=== PATIENT | male | born 1985 | race Caucasian/White ===

== ENCOUNTER 2016-07-11 11:45 | Emergency (ER) | payer MEDICARE, OTHER ==
[2016-07-11] MEDS ORDERED: NS 0.9% 1000 ML* 1,000 ML IV ONE (12:42)
[2016-07-11] MEDS ORDERED: Ondansetron INJ* 2 MG/ML VIAL IV ONE (12:47)
[2016-07-11] MEDS ORDERED: Morphine INJ* 4 MG/ML 1 ML SYRINGE IV ONE (12:47)
[2016-07-11 13:13] LABS: Hematocrit 48 % (42-52); Hemoglobin 16.2 g/dl (14.0-18.0); Mean Corpuscular HGB Conc 34 g/dl (31-36); Mean Corpuscular Hemoglobin 31 pg (27-31); Mean Corpuscular Volume 90 fL (80-94); Mean Platelet Volume 8 um3 (7.4-10.4); Red Blood Count 5.29 10^6/ul (4.0-5.4); Red Cell Distribution Width 13 % (10.5-15); White Blood Count 5.2 10^3/ul (3.5-10.8)
[2016-07-11 13:29] LABS: Albumin 4.1 g/dL (3.2-5.2); BUN/Creatinine Ratio 18.8 (8-20); C Reactive Protein 7.29 mg/L (< 5.00); EGFR African American 113.1 (>60); Globulin 2.9 g/dL (2-4); Potassium 4.1 mmol/L (3.5-5.0); Total Bilirubin 0.5 mg/dL (0.2-1.0)
[2016-07-11] MEDS ORDERED: Iohexol 300* (CONTRAST) 10 ML SDV IV ONE (13:48)
[2016-07-11] MEDS ORDERED: HYDROmorphone* 1 MG/ML 1 ML SYR IV ONE ×3 (14:02→17:13)
--- NOTE | 2016-07-11 14:42 | RAD ---
INDICATION: Periumbilical pain and swelling. COMPARISON: There are no prior studies available for comparison. TECHNIQUE: A CT scan of the abdomen and pelvis was performed with intravenous and oral contrast following intravenous injection of 150 ml of Omnipaque 300 nonionic contrast. Contiguous axial sections were obtained from the lung bases through the symphysis pubis. Images were reconstructed in the coronal and sagittal planes. FINDINGS: There is mild dependent bilateral lower lobe subsegmental atelectasis. No pleural effusion is present. The liver and spleen are within normal limits in size without significant focal abnormality. No calcified gallstones are seen. The pancreas appears to be within normal limits in size. The kidneys and adrenal glands are normal in size. No hydronephrosis is seen. No significant focal renal abnormality is seen. The aorta is normal in caliber and demonstrates homogeneous contrast opacification. No significant enlarged retroperitoneal lymph nodes are seen. The stomach is distended with contrast and food debris. The small bowel and colon appear nondistended. The appendix is within normal limits. There are scattered diverticuli throughout the colon which are [id number]-[id number] in degree. There is no evidence for diverticulitis or colitis. There is a small periumbilical hernia containing fat measuring approximately 2.2 x 2.6 cm in size. There is mild interstitial stranding within the hernia suggesting the possibility of localized inflammation. No free intraperitoneal air or fluid is seen. No significant focal osseous abnormality is seen. IMPRESSION: THERE IS A SMALL PERIUMBILICAL HERNIA CONTAINING FAT WITH MILD INTERSTITIAL STRANDING SUGGESTING LOCALIZED INFLAMMATION.
[2016-07-11 15:47] LABS: Urine Bilirubin Negative (Negative); Urine Glucose Negative (Negative); Urine Nitrite Negative (Negative)
[2016-07-11] MEDS ORDERED: HYDROcodone/ACETAMIN 5-325 MG* 1 TAB PO ONE (16:54)
[2016-07-11] MEDS ORDERED: Albuterol/Ipratropium NEB.SOL* Albuterol 2.5 MG/Ipratropium 0.5 MG 3 ML INH ONE (16:54)
[2016-07-11] MEDS ORDERED: Ondansetron ODT TAB* 4 MG PO ONE (16:55)
--- NOTE | 2016-07-11 17:09 | ED ---
Sandip Marie Janilya, scribed for Bryn Fontenot MD on 07/11/16 at 1243 . Abdominal Pain/Male - HPI Summary HPI Summary: A 30 y/o male came in to [facility] presenting w/ a gradual onset of constant abd pain for the past couple days. Severity rated 6/10. Pt states there is an umbilical hernia. He states he has had for couple years. However, it worsened when he did some heavy lifting for the past 2 days. Pt reports severe pain. - History of Current Complaint Chief Complaint: EDAbdPain Stated Complaint: ABD PAIN Time Seen by Provider: 07/11/16 12:31 Hx Obtained From: Patient Onset/Duration: Gradual Onset, Lasting Days, Still Present Timing: Constant Severity Initially: Moderate Severity Currently: Moderate Pain Intensity: 6 Pain Scale Used: 0-10 Numeric Radiates: No Aggravating Factor(s): Nothing Alleviating Factor(s): Nothing - Allergies/Home Medications Allergies/Adverse Reactions: Allergies Allergy/AdvReac Type Severity Reaction Status Date / Time Penicillins [PCN] Allergy Unknown Verified 04/24/15 12:02 Reaction Details Prazosin Allergy Rash Verified 04/24/15 12:02 PMH/Surg Hx/FS Hx/Imm Hx Previously Healthy: Yes - Surgical History Surgery Procedure, Year, and Place: Left shoulder repair Infectious Disease History: No Infectious Disease History: Denies: Hx Clostridium Difficile, Hx Hepatitis, Hx Human Immunodeficiency Virus (HIV), Hx of Known/Suspected MRSA, Hx Shingles, Hx Tuberculosis, Hx Known/ Suspected VRE, Hx Known/Suspected VRSA, History Other Infectious Disease, Traveled Outside the [place] in Last 30 Days - Family History Known Family History: Positive: Hypertension - father - Social History Alcohol Use: Occasionally Substance Use Type: Reports: None Smoking Status (MU): Never Smoked Tobacco Review of Systems Negative: Fever Positive: Other - umbilical hernia All Other Systems Reviewed And Are Negative: Yes Physical Exam Triage Information Reviewed: Yes Vital Signs On Initial Exam: Initial Vitals Temp Pulse Resp BP Pulse Ox 97.5 F 81 16 129/75 100 07/11/16 11:47 07/11/16 11:47 07/11/16 11:47 07/11/16 11:47 07/11/16 11:47 Vital Signs Reviewed: Yes Appearance: Positive: Well-Appearing, Pain Distress Skin: Positive: Warm, Skin Color Reflects Adequate Perfusion, Dry Head/Face: Positive: Normal Head/Face Inspection Eyes: Positive: EOMI, MICHA ENT: Positive: Normal ENT inspection Neck: Positive: Supple, Nontender Respiratory/Lung Sounds: Positive: Clear to Auscultation, Breath Sounds Present Cardiovascular: Positive: RRR Abdomen Description: Positive: Nontender, Soft, Other: - Umbilical hernia that appears to reduce on exam but with moderate amount of pain Musculoskeletal: Positive: Normal, Strength/ROM Intact Neurological: Positive: Normal, Sensory/Motor Intact, Alert, Oriented to Person Place, Time Psychiatric: Positive: Affect/Mood Appropriate Diagnostics - Vital Signs Vital Signs Temp Pulse Resp BP Pulse Ox 07/11/16 11:47 97.5 F 81 16 129/75 100 - Laboratory Lab Results: Lab Results 07/11/16 07/11/16 07/11/16 Range/Units 13:00 13:00 13:00 WBC 5.2 (3.5-10.8) 10^3/ul RBC 5.29 (4.0-5.4) 10^6/ul Hgb 16.2 (14.0-18.0) g/dl Hct 48 (42-52) % MCV 90 (80-94) fL MCH 31 (27-31) pg MCHC 34 (31-36) g/dl RDW 13 (10.5-15) % Plt Count 180 (150-450) 10^3/ul MPV 8 (7.4-10.4) um3 Neut % (Auto) 48.4 (38-83) % Lymph % (Auto) 40.3 (25-47) % Grant % (Auto) 8.5 (1-9) % Eos % (Auto) 2.0 (0-6) % Baso % (Auto) 0.8 (0-2) % Absolute Neuts (auto) 2.5 (1.5-7.7) 10^3/ul Absolute Lymphs (auto) 2.1 (1.0-4.8) 10^3/ul Absolute Monos (auto) 0.4 (0-0.8) 10^3/ul Absolute Eos (auto) 0.1 (0-0.6) 10^3/ul Absolute Basos (auto) 0 (0-0.2) 10^3/ul Absolute Nucleated RBC 0 10^3/ul Nucleated RBC % 0.1 INR (Anticoag Therapy) 0.92 (0.89-1.11) APTT 30.8 (26.0-36.3) seconds Sodium 137 (133-145) mmol/L Potassium 4.1 (3.5-5.0) mmol/L Chloride 105 (101-111) mmol/L Carbon Dioxide 25 (22-32) mmol/L Anion Gap 7 (2-11) mmol/L BUN 19 (6-24) mg/dL Creatinine 1.01 (0.67-1.17) mg/dL Est GFR ( Amer) 113.1 (>60) Est GFR (Non-Af Amer) 88.0 (>60) BUN/Creatinine Ratio 18.8 (8-20) Glucose 92 (70-100) mg/dL Lactic Acid (0.5-2.0) mmol/L Calcium 9.0 (8.6-10.3) mg/dL Total Bilirubin 0.50 (0.2-1.0) mg/dL AST 27 (13-39) U/L ALT 27 (7-52) U/L Alkaline Phosphatase 52 (34-104) U/L C-Reactive Protein 7.29 H (< 5.00) mg/L Total Protein 7.0 (6.4-8.9) g/dL Albumin 4.1 (3.2-5.2) g/dL Globulin 2.9 (2-4) g/dL Albumin/Globulin Ratio 1.4 (1-3) Lipase 109 H (11.0-82.0) U/L Urine Color Urine Appearance Urine pH (5-9) Ur Specific [place] (1.010-1.030) Urine Protein (Negative) Urine Ketones (Negative) Urine Blood (Negative) Urine Nitrate (Negative) Urine Bilirubin (Negative) Urine Urobilinogen (Negative) Ur Leukocyte Esterase (Negative) Urine Glucose (Negative) Urine Ascorbic Acid (Negative) 07/11/16 07/11/16 Range/Units 13:00 15:38 WBC (3.5-10.8) 10^3/ul RBC (4.0-5.4) 10^6/ul Hgb (14.0-18.0) g/dl Hct (42-52) % MCV (80-94) fL MCH (27-31) pg MCHC (31-36) g/dl RDW (10.5-15) % Plt Count (150-450) 10^3/ul MPV (7.4-10.4) um3 Neut % (Auto) (38-83) % Lymph % (Auto) (25-47) % Grant % (Auto) (1-9) % Eos % (Auto) (0-6) % Baso % (Auto) (0-2) % Absolute Neuts (auto) (1.5-7.7) 10^3/ul Absolute Lymphs (auto) (1.0-4.8) 10^3/ul Absolute Monos (auto) (0-0.8) 10^3/ul Absolute Eos (auto) (0-0.6) 10^3/ul Absolute Basos (auto) (0-0.2) 10^3/ul Absolute Nucleated RBC 10^3/ul Nucleated RBC % INR (Anticoag Therapy) (0.89-1.11) APTT (26.0-36.3) seconds Sodium (133-145) mmol/L Potassium (3.5-5.0) mmol/L Chloride (101-111) mmol/L Carbon Dioxide (22-32) mmol/L Anion Gap (2-11) mmol/L BUN (6-24) mg/dL Creatinine (0.67-1.17) mg/dL Est GFR ( Amer) (>60) Est GFR (Non-Af Amer) (>60) BUN/Creatinine Ratio (8-20) Glucose (70-100) mg/dL Lactic Acid 1.5 (0.5-2.0) mmol/L Calcium (8.6-10.3) mg/dL Total Bilirubin (0.2-1.0) mg/dL AST (13-39) U/L ALT (7-52) U/L Alkaline Phosphatase (34-104) U/L C-Reactive Protein (< 5.00) mg/L Total Protein (6.4-8.9) g/dL Albumin (3.2-5.2) g/dL Globulin (2-4) g/dL Albumin/Globulin Ratio (1-3) Lipase (11.0-82.0) U/L Urine Color Yellow Urine Appearance Clear Urine pH 6.0 (5-9) Ur Specific [place] > 1.060 H (1.010-1.030) Urine Protein Negative (Negative) Urine Ketones Negative (Negative) Urine Blood Negative (Negative) Urine Nitrate Negative (Negative) Urine Bilirubin Negative (Negative) Urine Urobilinogen Negative (Negative) Ur Leukocyte Esterase Negative (Negative) Urine Glucose Negative (Negative) Urine Ascorbic Acid * H (Negative) Result Diagrams: 07/11/16 13:00 07/11/16 13:00 Lab Statement: Any lab studies that have been ordered have been reviewed, and results considered in the medical decision making process. - CT abd/pel CT Interpretation: Positive (See Comments) - IMPRESSION: THERE IS A SMALL PERIUMBILICAL HERNIA CONTAINING FAT WITH MILD INTERSTITIAL STRANDING SUGGESTING LOCALIZED INFLAMMATION. CT Interpretation Completed By: Radiologist Abdominal Pain Fem Course/Dx - Course Course Of Treatment: A 30 y/o male came in to [facility] presenting w/ a gradual onset of constant abd pain for the past couple days. Severity rated 6/10. Pt states there is an umbilical hernia. He states he has had for couple years. However, it worsened when he did some heavy lifting for the past 2 days. Pt reports severe pain. CT abd/pel showed A SMALL PERIUMBILICAL HERNIA CONTAINING FAT WITH MILD INTERSTITIAL STRANDING SUGGESTING LOCALIZED INFLAMMATION. Assessment/Plan: NO CRITICAL CARE TIME. DR TIRADO SAW PATIENT IN ED. PAIN IMPROVED IN ED. HERNIA REDUCED. DICHARGE HOME STABLE. - Diagnoses Provider Diagnoses: Abdominal pain, Umbilical hernia - Provider Notifications Discussed Care Of Patient With: Dr. Tirado (surgery) at 1534: discussed pt care Discharge - Discharge Plan Condition: Stable Disposition: HOME Patient Education Materials: Umbilical Hernia (ED), Acute Abdominal Pain (ED) Referrals: Yuri Lake MD [Primary Care Provider] - Randall Tirado MD [Medical Doctor] - [facility] [Provider Group] Additional Instructions: FOLLOW UP WITH YOUR DOCTOR. FOLLOW UP WITH SURGERY, DR TIRADO, FOR YOUR UMBILICAL HERNIA. RETURN TO THE EMERGENCY DEPARTMENT FOR ANY WORSENING OF YOUR CONDITION; PAIN, FEVER, VOMITING, YOU FEEL ILL OR QUESTIONS OR CONCERNS. The documentation as recorded by the Sandip piña Janilya accurately reflects the service I personally performed and the decisions made by , Bryn Fontenot MD.
[2016-07-11 17:34] VITALS: BP 140/80
[2016-07-11 17:36] LABS: TSH (Thyroid Stimulating Horm) 0.74 mcIU/mL (0.34-5.60)
[2016-07-11 17:43] LABS: Free T4 0.78 ng/dL (0.61-1.12)
[2016-07-11 19:18] LABS: Total T3 0.9 ng/mL (0.87-1.78)
--- NOTE | 2016-07-11 21:01 | CONS ---
SURGICAL CONSULTATION REPORT: DATE OF CONSULT: 07/11/16 LOCATION: Emergency room. REASON FOR CONSULT: Umbilical hernia. HISTORY OF PRESENT ILLNESS: This is a 30-year-old male with history of PTSD, restless legs syndrome, and umbilical hernia, who presented to the emergency room with a 2-day history of increased swelling and pain in the umbilical hernia site. The patient reports no vomiting, some nausea, no problems with constipation or obstipation. He was seen and evaluated by Dr. Fontenot in the emergency room and found to have an incarcerated umbilical hernia, which was able to be reduced. The patient also had a CT scan showing fat-containing hernia and some fat stranding. Due to his presentation, surgical consultation was requested. PAST MEDICAL HISTORY: Significant for PTSD and restless legs syndrome. He has had injury to his back sustained during service. PAST SURGICAL HISTORY: He has had back surgery, 2011; left shoulder surgery, 2013; right wrist surgery, 2013. MEDICATIONS: 1. Ropinirole 1 mg p.o. q.h.s. 2. Seroquel 400 mg p.o. q.h.s. 3. Fluticasone nasal spray daily. 4. Albuterol inhaler p.r.n. ALLERGIES: PENICILLIN and PRAZOSIN. FAMILY HISTORY: A brother has thyroid disease. SOCIAL HISTORY: Ex-smoker, who smoked on and off for 3 years. He reports 3 to 4 alcoholic beverages a week. He denies other drug use. REVIEW OF SYSTEMS: Denies strokes or seizures. Denies known history of thyroid disease. He has restless legs and PTSD as reported above. He denies shortness of breath, cough, dyspnea on exertion. He denies chest pain or palpitations. He denies easy bruising or bleeding. He denies gastroesophageal reflux disease, hiatal hernia, inflammatory bowel disease, diarrhea, or constipation. Musculoskeletal System: Positive noted with history of back injury and orthopedic surgeries. No history of diabetes, polydipsia, or polyphagia. No history of blood clots. PHYSICAL EXAM: He is 5 feet 8 inches, 190 pounds, BMI 28.9. Temperature 97.9, blood pressure 121/68, pulse 67, respirations 18, O2 sat 99% on room air. Head : Normocephalic and atraumatic. Sclerae anicteric. Mucous membranes moist. He appears to have proptosis. His neck is symmetrical with trachea midline. Thyroid feels symmetrically enlarged. The lungs are clear to auscultation bilaterally without wheezes, rales, or rhonchi. Heart has regular S1 and S2. No murmurs, rubs, or gallops appreciated. Abdomen: Has no scars. There is a small umbilical hernia which is fat containing, which is reducible, but tender. The abdomen has normal bowel sounds present. Otherwise, soft and nontender. Extremities are warm without cyanosis, clubbing, or edema. DIAGNOSTIC STUDIES/LAB DATA: WBC is 5.2, hemoglobin 16.2, platelet count 180. Chemistries: Normal electrolytes, transaminases. CRP is 7.29. Lipase elevated at 109. Urinalysis was notable for elevated ascorbic acid. Radiographic data: CT abdomen and pelvis with oral and IV contrast: Small paraumbilical hernia containing fat with interstitial stranding. IMPRESSION: A 30-year-old male with reducible umbilical hernia containing fat. This does not require any urgent surgical evaluation. I am concerned for the possibility of thyroid disease. PLAN/RECOMMENDATIONS: The patient and his significant other who is present were explained the findings. Recommended that he complete evaluation with his primary care provider and he can be seen as an outpatient for umbilical hernia repair. I did briefly discuss the open procedure with the patient, explained the possibility of mesh repair, and explained that at present, there is no need for urgent repair. The patient had an opportunity to ask questions, all questions were answered. He will follow up in the [facility] office pending his medical evaluation. CC: Antonio Green NP, [facility]* [id number]/[facility] #: [id number]
== END 2016-07-11 17:32 | disposition home or self-care (01) ==
LOC: ED 11:45
DX: K42.9 Umbilical hernia without obstruction or gangrene (principal); R10.9 Unspecified abdominal pain
CPT/HCPCS: 36415; 74177; 80053; 81003; 83605; 83690; 84439; 84443; 84479; 85025; 85610; 85730; 86140; 96374; 96375; 99283; A9270-GY; J1170; J2270; J2405; Q9967

== ENCOUNTER → 2016-08-11 18:46 | Emergency (ER) | payer MEDICARE, OTHER | END | disposition left against medical advice (07) | LOC: ED 18:46 | DX: M25.512 Pain in left shoulder (principal); Z53.21 Procedure and treatment not carried out due to patient leaving prior to being seen by health care provider ==

== ENCOUNTER 2016-08-11 19:17 | Emergency (ER) | payer MEDICARE, OTHER ==
--- NOTE | 2016-08-11 19:58 | RAD ---
Indication: LEFT shoulder pain following lifting at the gym. Humeral head and AC joint region pain. Comparison: No relevant prior exams available on the [facility] PACS for comparison. Technique: Internal rotation AP, external rotation Grashey, scapular Y views LEFT shoulder Report: Normal acromioclavicular and glenohumeral joint alignment. Negative for fracture Negative for significant arthropathic change. Surgical anchors at the anterior glenoid suggests previous labral repair. Unremarkable soft tissue contours. IMPRESSION: 1. Negative for fracture or malalignment. 2. Stigmata of previous rotator cuff repair.
--- NOTE | 2016-08-11 21:17 | UC ---
Shoulder Pain HPI - HPI Summary HPI Summary: The patient comes in today for: 1. Left shoulder pain: Onset: Last night. Palliative/provocative: Anterior abduction and lateral abduction makes it worse. Quality: Sharp and hot Region: Superior and anterior left shoulder. Severity: 8/10 Associated symptoms: Event: He was in a seated chest press 50 pounds total. He suddenly felt something. He went home. He iced the shoulder. Last night he took ketorolac 10 mg and 750 mg of Robaxin. No help. He has tried Aleve. Weakness or numbness: He has reduced muscle use due to pain. * - History of Current Complaint Chief Complaint: UCUpperExtremity Stated Complaint: SHOULDER/COLLAR BONE INJURY Time Seen by Provider: 08/11/16 20:49 Hx Obtained From: Patient - Allergies/Home Medications Allergies/Adverse Reactions: Allergies Allergy/AdvReac Type Severity Reaction Status Date / Time Penicillins [PCN] Allergy Unknown Verified 04/24/15 12:02 Reaction Details Prazosin Allergy Rash Verified 04/24/15 12:02 PMH/Surg Hx/FS Hx/Imm Hx Previously Healthy: No - Restless leg syndrome, insomnia, thyroid disease-- inflammation? Respiratory History: Asthma - As a child. - Surgical History Surgical History: Yes Surgery Procedure, Year, and Place: Left shoulder repair,spinal injury l5 s1 - Family History Known Family History: Positive: Hypertension - father Negative: Diabetes - Social History Occupation: Unemployed Alcohol Use: Occasionally Substance Use Type: None Smoking Status (MU): Never Smoked Tobacco Review of Systems Constitutional: Negative Skin: Negative Eyes: Negative ENT: Negative Respiratory: Negative Cardiovascular: Negative Gastrointestinal: Negative Genitourinary: Negative Musculoskeletal: Arthralgia All Other Systems Reviewed And Are Negative: Yes Physical Exam Triage Information Reviewed: Yes Appearance: Well-Appearing, No Pain Distress - when sitting still., Well- Nourished Vital Signs: Initial Vital Signs Temp 99 F 08/11/16 19:28 Pulse 95 08/11/16 19:28 Resp 20 08/11/16 19:28 Pulse Ox 99 08/11/16 19:28 Vital Signs Reviewed: Yes Eyes: Positive: Conjunctiva Clear. Negative: Discharge ENT: Positive: Hearing grossly normal. Negative: Pharyngeal erythema, Nasal congestion, Nasal drainage, TM bulging, TM dull, TM red, Tonsillar swelling, Tonsillar exudate Dental: Negative: Gross Decay/Caries @, Dental Fracture @ Neck: Positive: Supple, Nontender, No Lymphadenopathy. Negative: Nuchal Rigidity Respiratory: Positive: Chest non-tender, Lungs clear, No respiratory distress, No accessory muscle use. Negative: Crackles, Wheezing Cardiovascular: Positive: RRR, No Murmur Abdomen Description: Positive: Nontender, No Organomegaly, Soft. Negative: Distended, Guarding Musculoskeletal: Positive: ROM Limited @ - He is not able to abduct actively his left arm above his head., Other: - Left shoulder: No misalignment. No ecchymosis or erythema. There is passive range of motion to 90 degrees ( parallel with the floor). There is slight tenderness to the AC joint area, but he said that he has this before. There is no distortion of the anatomy. Pulses were 2+/2 x 2 for radial pulses. NVI. External rotation against resistance is the most painful. Neurological: Positive: Alert, Muscle Tone Normal Psychological: Positive: Normal Response To Family, Age Appropriate Behavior, Consolable Skin: Negative: rashes, breakdown Diagnostics - Radiology No standard instances Xray Interpretation: No Acute Changes Radiology Interpretation Completed By: Radiologist Shoulder Course/Dx - Differential Dx/Diagnosis Differential Diagnosis/HQI/PQRI: Arthritis, Burn, Bursitis, Fracture (Closed), Rotator Cuff Injury, Sprain Provider Diagnoses: Left shoulder pain (rotator cuff injury). Discharge - Discharge Plan Condition: Stable Disposition: HOME Patient Education Materials: Rotator Cuff Injury (ED), Rotator Cuff Tendinitis (ED), Shoulder Pain (ED) Referrals: Yuri Lake MD [Primary Care Provider] - Shira Blanc MD [Medical Doctor] - 1 Week (Rest the left arm/shoulder only using it as tolerated. Take the Naproxen as directed. Be re-evaluated by your regular physican if you have significant improvement. If you are not, and particularly if you get worse, please see the orthopedic surgeon (Dr. Blanc) for further evauation and treatment. )
[2016-08-11] MEDS ORDERED: Naproxen TAB* 250 MG PO ONE (21:34)
== END 2016-08-11 21:56 | disposition home or self-care (01) ==
LOC: UCEAST 19:17
DX: M25.512 Pain in left shoulder (principal); X50.0XXA Overexertion from strenuous movement or load, initial encounter; Y93.B9 Activity, other involving muscle strengthening exercises; Y92.9 Unspecified place or not applicable; Y99.9 Unspecified external cause status
CPT/HCPCS: 99212; A9270-GY; G0463

== ENCOUNTER 2017-07-06 15:12 | Emergency (ER) | payer MEDICARE, OTHER ==
[2017-07-06] MEDS ORDERED: oxyCODONE/Acetamin 5/325 MG* TAB PO ONE ×2 (16:32→17:31)
[2017-07-06] MEDS ORDERED: Ketorolac INJ* 60 MG/2 ML VIAL IM ONE (16:32)
[2017-07-06] MEDS ORDERED: Ketorolac INJ* 15 MG/ML 1 ML VIAL ONE (16:34)
[2017-07-06] MEDS ORDERED: oxyCODONE/Acetamin 5/325 MG* TAB ONE (16:35)
--- NOTE | 2017-07-06 17:15 | RAD ---
INDICATION: Right hip pain after a fall TECHNIQUE: An AP view of the pelvis was obtained. FINDINGS: The bones are in normal alignment. No fracture is seen. Joint spaces appear maintained. IMPRESSION: NO EVIDENCE FOR FRACTURE. IF THE PATIENT'S SYMPTOMS PERSIST RECOMMEND FOLLOW-UP IMAGING.
[2017-07-06 18:10] VITALS: BP 125/77
--- NOTE | 2017-07-06 20:30 | ED ---
Kerri Marie Thomas, scribed for Ranjit Hammond MD on 07/06/17 at 1558 . Lower Extremity - HPI Summary HPI Summary: The patient is a 31 year old male who fell down some basement stairs today at 14 :30. He complains of right-sided groin and right-sided pelvis pain. He denies any other complaints. - History of Current Complaint Chief Complaint: EDHipPelvisInjury Stated Complaint: FALL/RT LEG INJURY Time Seen by Provider: 07/06/17 15:37 Hx Obtained From: Patient Mechanism Of Injury: Other - Fell down basement stairs Onset of Pain: Immediate Severity Currently: Severe Pain Intensity: 8 Pain Scale Used: 0-10 Numeric Timing: Constant Location: Is Discrete @ - right-sided groin, pelvis Associated Signs And Symptoms: Negative: Fever Aggravating Factor(s): Movement Alleviating Factor(s): Nothing - Allergies/Home Medications Allergies/Adverse Reactions: Allergies Allergy/AdvReac Type Severity Reaction Status Date / Time Penicillins Allergy Unknown Verified 07/06/17 15:19 Reaction Details prazosin Allergy Rash Verified 07/06/17 15:19 PMH/Surg Hx/FS Hx/Imm Hx Endocrine/Hematology History: Denies: Hx Diabetes Cardiovascular History: Denies: Hx Hypertension Respiratory History: Reports: Hx Asthma History: Denies: Hx Renal Disease - Surgical History Surgery Procedure, Year, and Place: Left shoulder repair,spinal injury l5 s1 Infectious Disease History: No Infectious Disease History: Denies: Hx Clostridium Difficile, Hx Hepatitis, Hx Human Immunodeficiency Virus (HIV), Hx of Known/Suspected MRSA, Hx Shingles, Hx Tuberculosis, Hx Known/ Suspected VRE, Hx Known/Suspected VRSA, History Other Infectious Disease, Traveled Outside the [place] in Last 30 Days - Family History Known Family History: Positive: Hypertension - father Negative: Diabetes - Social History Alcohol Use: Occasionally Substance Use Type: Reports: None Smoking Status (MU): Never Smoked Tobacco Review of Systems Negative: Fever Positive: Other - Right-sided groin pain, right-sided pelvis pain All Other Systems Reviewed And Are Negative: Yes Physical Exam - Summary Physical Exam Summary: Appearance: The patient is well-nourished in no acute distress and in no acute pain. Skin: The skin is warm and dry and skin color reflects adequate perfusion. HEENT: The head is normocephalic and atraumatic. The pupils are equal and reactive. The conjunctivae are clear and without drainage. Nares are patent and without drainage. Mouth reveals moist mucous membranes and the throat is without erythema and exudate. The external ears are intact. The ear canals are patent and without drainage. The tympanic membranes are intact. Neck: the neck is supple with full range of motion and non-tender. There are no carotid bruits. There is no neck vein distension. Respiratory: Chest is non-tender. Lungs are clear to auscultation and breath sounds are symmetrical and equal. Cardiovascular: Heart is regular rate and rhythm. There is no murmur or rub auscultated. There is no peripheral edema and pulses are symmetrical and equal. Abdomen: The abdomen is soft and non-tender. There are normal bowel sounds heard in all four quadrants and there is no organomegaly palpated. Musculoskeletal: He is tender when abduct his right leg. He is tender to palpation to her pelvis and inguinal area on the right. There is no back tenderness noted. There is good capillary refill. There is no peripheral edema or calf tenderness elicited. Neurological: Patient is alert and oriented to person, place and time. The patient has symmetrical motor strength in all four extremities. Cranial nerves are grossly intact. Deep tendon reflexes are symmetrical and equal in all four extremities. Psychiatric: The patient has an appropriate affect and does not exhibit any anxiety or depression. Triage Information Reviewed: Yes Vital Signs On Initial Exam: Initial Vitals Temp Pulse Resp BP Pulse Ox 97.6 F 83 20 128/73 97 07/06/17 15:15 07/06/17 15:15 07/06/17 15:15 07/06/17 15:15 07/06/17 15:15 Vital Signs Reviewed: Yes Diagnostics - Vital Signs Vital Signs Temp Pulse Resp BP Pulse Ox 07/06/17 15:15 97.6 F 83 20 128/73 97 - Laboratory Lab Statement: Any lab studies that have been ordered have been reviewed, and results considered in the medical decision making process. - Radiology Pelvis XR Xray Interpretation: No Acute Changes - No evidence for fracture. Dr. Hammond has reviewed this report. Radiology Interpretation Completed By: Radiologist Lower Extremity Course/Dx - Course Course Of Treatment: Mr. Zapata fell through some stairs and had a severe right hip abduction. He has severe pain with attempts to ambulate or bear weight. His pelvic x-ray was negative and he was tender at the origin of his adductors. I gave him pain medications and crutches and recommended Ortho F/U next week. - Diagnoses Provider Diagnoses: Strain of groin Discharge - Sign-Out/Discharge Documenting (check all that apply): Discharge/Admit/Transfer - Discharge Plan Condition: Stable Disposition: HOME Prescriptions: oxyCODONE/Acetamin 5/325 MG* [Percocet 5/325 TAB*] 1 tab PO Q6H PRN #20 tab MDD 4 PRN Reason: Pain Patient Education Materials: Groin Strain (ED) Referrals: Rolf Beckwith MD [Medical Doctor] - 7 Days Additional Instructions: Follow up with Dr. Beckwith, orthopedics, next week. I recommend ibuprofen for the pain. Use the crutches. Return to the emergency department for any new or worsening symptoms. - Billing Disposition and Condition Condition: STABLE Disposition: HOME The documentation as recorded by the Kerri piña Thomas accurately reflects the service I personally performed and the decisions made by me, Ranjit Hammond MD.
== END 2017-07-06 18:10 | disposition home or self-care (01) ==
LOC: ED 15:12
DX: S39.013A Strain of muscle, fascia and tendon of pelvis, initial encounter (principal); R10.31 Right lower quadrant pain; W10.9XXA Fall (on) (from) unspecified stairs and steps, initial encounter; Y92.9 Unspecified place or not applicable
CPT/HCPCS: 72170; 96372; 99282; A9270-GY; J1885

== ENCOUNTER 2017-09-09 09:41 | Emergency (ER) | payer MEDICARE, OTHER ==
[2017-09-09] MEDS ORDERED: Aspirin 81 mg CHEW TAB* 81 MG TAB.CHEW PO ONE (09:57)
[2017-09-09] MEDS ORDERED: Ketorolac INJ* 30 MG/ML 1 ML VIAL IV PUSH ONE (10:01)
--- NOTE | 2017-09-09 10:04 | ED ---
HPI Chest Pain - HPI Summary HPI Summary: This patient is a 31 year old M presenting to [facility] accompanied by a male with a chief complaint of sharp, pulsing upper left CP since yesterday. Pt says this happened a few months ago but he didnt seek medical attention at the time. The patient rates the pain 2/10 in severity. Patient reports nausea, vomiting. Patient denies trouble breathing, reflux, heartburn, and back, arm, and neck pain. Pts nausea was absent upon arrival to the [facility]. PMHx of PTSD and anxiety, shoulder repair surgery. SHx of medical marijuana use for anxiety and back spasms. Pt denies EtOH use and smoking. 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 Pt mentioned that he hurt his hip a few months ago but has no other recent injuries. - History of Current Complaint Chief Complaint: EDChestPainROMI Time Seen by Provider: 09/09/17 09:45 Hx Obtained From: Patient Onset/Duration: Started Days Ago - yesterday Timing: Intermittent Initial Severity: Mild Current Severity: Mild Pain Intensity: 2 Pain Scale Used: 0-10 Numeric Chest Pain Location: Discrete at: - upper left Character: Sharp/Stabbing - Allergy/Home Medications Allergies/Adverse Reactions: Allergies Allergy/AdvReac Type Severity Reaction Status Date / Time Penicillins Allergy Unknown Verified 09/09/17 09:46 Reaction Details Home Medications: Home Medications Calcium Carbonate TAB* 1,000 mg PO TID PRN 09/09/17 [History Confirmed 09/09/17] Gabapentin CAP(*) [Neurontin 300 CAP(*)] 300 mg PO TID 09/09/17 [History Confirmed 09/09/17] Lidocaine 4% TOPICAL* [Xylocaine Topical 4%*] 1 applic TOPICAL TID PRN 09/09/17 [History Confirmed 09/09/17] Methocarbamol TAB* [Robaxin 500 MG TAB*] 500 mg PO QID PRN 09/09/17 [History Confirmed 09/09/17] Mirtazapine TAB* [Remeron TAB*] 45 mg PO BEDTIME 09/09/17 [History Confirmed ] Naproxen TAB* [Naprosyn 375 mg TAB*] 500 mg PO BID PRN 09/09/17 [History Confirmed 09/09/17] PARoxetine HCL TAB* [Paxil TAB*] 40 mg PO BEDTIME 09/09/17 [History Confirmed ] Prazosin CAP* [Minipress CAP*] 14 mg PO BEDTIME 09/09/17 [History Confirmed ] rOPINIRole TAB* [Requip TAB*] 2 mg PO BEDTIME 09/09/17 [History Confirmed ] PMH/Surg Hx/FS Hx/Imm Hx Endocrine/Hematology History: Denies: Hx Diabetes Cardiovascular History: Denies: Hx Hypertension, Hx Pacemaker/ICD Respiratory History: Reports: Hx Asthma History: Denies: Hx Renal Disease Musculoskeletal History: Reports: Hx Orthopedic Injury - Right Hip Injury, Other Musculoskeletal History - Right Hip Pain Sensory History: Denies: Hx Hearing Aid EENT History: Denies: Hx Deafness Psychiatric History: Reports: Hx Anxiety, Hx Depression, Hx Post Traumatic Stress Disorder Denies: Hx Panic Disorder - Surgical History Surgery Procedure, Year, and Place: Left shoulder repair,spinal injury l5 s1 Infectious Disease History: No Infectious Disease History: Denies: Hx Clostridium Difficile, Hx Hepatitis, Hx Human Immunodeficiency Virus (HIV), Hx of Known/Suspected MRSA, Hx Shingles, Hx Tuberculosis, Hx Known/ Suspected VRE, Hx Known/Suspected VRSA, History Other Infectious Disease, Traveled Outside the [place] in Last 30 Days - Family History Known Family History: Positive: None, Hypertension - father Negative: Diabetes - Social History Occupation: Retired - Alcohol Use: None Substance Use Type: Reports: Marijuana Smoking Status (MU): Former Smoker Review of Systems Positive: Chest Pain Negative: Shortness Of Breath Positive: Vomiting, Nausea. Negative: Other - heartburn Negative: Myalgia Negative: Anxious All Other Systems Reviewed And Are Negative: Yes Physical Exam - Summary Physical Exam Summary: Appearance: Well appearing, no pain distress Skin: warm, dry, reflects adequate perfusion, scar on left shoulder from past surgery Head/face: normal Eyes: EOMI, MICHA ENT: normal Neck: supple, non-tender Respiratory: CTA, breath sounds present Cardiovascular: RRR, pulses symmetrical, reproducible CP with palpation Abdomen: non-tender, soft Bowel Sounds: present Musculoskeletal: normal, strength/ROM intact Neuro: normal, sensory motor intact, A&Ox3 PERC Rule applies with score of zero Triage Information Reviewed: Yes Vital Signs On Initial Exam: Initial Vitals Temp Pulse Resp BP Pulse Ox 98.1 F 73 17 137/85 98 09/09/17 09:42 09/09/17 09:42 09/09/17 09:42 09/09/17 09:42 09/09/17 09:42 Vital Signs Reviewed: Yes Diagnostics - Vital Signs Vital Signs Temp Pulse Resp BP Pulse Ox 09/09/17 09:42 98.1 F 73 17 137/85 98 - Laboratory Result Diagrams: 09/09/17 10:20 09/09/17 10:20 Lab Statement: Any lab studies that have been ordered have been reviewed, and results considered in the medical decision making process. - Radiology CXR Xray Interpretation: No Acute Changes Radiology Interpretation Completed By: Radiologist - No evidence for acute intrathoracic disease.ER physician has reviewed this report. - EKG 09:52 Cardiac Rate: NL EKG Rhythm: Sinus Rhythm - [address] Segment: Normal EKG Interpretation: Normal axis, normal interval, normal ST Re-Evaluation - Re-Evaluation First Eval Re-Evaluation Time: 11:09 Change: Improved Comment: Pt states he is feeling better. Ready for discharge Chest Pain Course/Dx - Course Course Of Treatment: Patient with heart score of 0. His pain was resolved with Toradol. His EKG, troponin were negative. Pulmonary embolism rule out criteria applied. Normal sat. - Chest Pain Differential Diagnosis/HQI/PQRI: Acute SD, ACS, GI Disease, Lower Respiratory Infection, Pulmonary Edema - Diagnoses Provider Diagnoses: Atypical chest pain, Chest wall pain Discharge - Sign-Out/Discharge Documenting (check all that apply): Patient Departure - discharge - Discharge Plan Condition: Improved Disposition: HOME Patient Education Materials: Chest Pain (ED), Costochondritis (ED) Referrals: Antonio Green, MANUFACTURING TEST TECHNICIAN [Primary Care Provider] - Additional Instructions: , Hydration. Rest may help. Return if worse, pain becomes examined related to exertion, worse or other concerns. Follow up with your family doctor on Tuesday. - Billing Disposition and Condition Condition: IMPROVED Disposition: Home
[2017-09-09] MEDS ORDERED: NS 0.9% 500 ML* 500 ML IV ONE (10:25)
[2017-09-09 10:34] LABS: ABS Basophils 0 10^3/ul (0-0.2); ABS Eosinophils 0.3 10^3/ul (0-0.6); ABS Lymphocytes 1.4 10^3/ul (1.0-4.8); ABS Monocytes 0.3 10^3/ul (0-0.8); ABS Neutrophils 2.8 10^3/ul (1.5-7.7); ABS Nucleated RBC 0 10^3/ul; Eosinophil % 6.4 % (0-6); Hematocrit 45 % (42-52); Hemoglobin 15.4 g/dl (14.0-18.0); Lymphocyte % 29.4 % (25-47); Mean Corpuscular HGB Conc 35 g/dl (31-36); Mean Corpuscular Hemoglobin 31 pg (27-31); Mean Corpuscular Volume 90 fL (80-94); Mean Platelet Volume 8.7 um3 (7.4-10.4); Nucleated Red Blood Cells % 0.1; Platelet Count 209 10^3/ul (150-450); Red Blood Count 4.95 10^6/ul (4.00-5.40); Red Cell Distribution Width 14 % (10.5-15); White Blood Count 4.9 10^3/ul (3.5-10.8)
--- NOTE | 2017-09-09 10:48 | RAD ---
Indication: LEFT upper chest pain, nausea. Feels heavy. Comparison: July 11, 2016 CT abdomen Technique: Upright AP 1030 hours Report: Clear lungs and pleural spaces. Negative for pneumothorax. The heart, pulmonary vasculature, and mediastinal contours are unremarkable. Negative for subphrenic gas. Unremarkable osseous structures and soft tissue contours. IMPRESSION: #. No evidence for acute intrathoracic disease.
[2017-09-09 10:55] LABS: EGFR Non-African American 103.7 (>60)
[2017-09-09 11:41] VITALS: BP 117/72
== END 2017-09-09 11:39 | disposition home or self-care (01) ==
LOC: ED 09:41
DX: R07.89 Other chest pain (principal); F43.10 Post-traumatic stress disorder, unspecified; F41.8 Other specified anxiety disorders; Z87.891 Personal history of nicotine dependence; Z88.0 Allergy status to penicillin
CPT/HCPCS: 36415; 71045; 80053; 83605; 84484; 85025; 93005; 96361; 96374; 99283; A9270-GY; J1885

== ENCOUNTER 2017-10-07 19:20 | Emergency (ER) | payer MEDICARE, OTHER ==
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
[2017-10-07 20:15] LABS: ABS Basophils 0.1 10^3/ul (0-0.2); ABS Eosinophils 0.2 10^3/ul (0-0.6); ABS Lymphocytes 1.4 10^3/ul (1.0-4.8); ABS Monocytes 0.5 10^3/ul (0-0.8); ABS Neutrophils 6.6 10^3/ul (1.5-7.7); ABS Nucleated RBC 0 10^3/ul; Eosinophil % 2.3 % (0-6); Hematocrit 47 % (42-52); Hemoglobin 16.3 g/dl (14.0-18.0); Lymphocyte % 16.3 % (25-47); Mean Corpuscular HGB Conc 35 g/dl (31-36); Mean Corpuscular Hemoglobin 31 pg (27-31); Mean Corpuscular Volume 90 fL (80-94); Nucleated Red Blood Cells % 0; Platelet Count 215 10^3/ul (150-450); Red Blood Count 5.26 10^6/ul (4.00-5.40); Red Cell Distribution Width 15 % (10.5-15); White Blood Count 8.9 10^3/ul (3.5-10.8)
--- OUTSIDE RECORDS SUMMARY | 2017-10-07 20:18 | XMS REPORT ---
:1985 External Reference #:[id number] Author Organization [facility] Address [address] [place] [address] Phone [phone] Care Team Providers Name Role Phone RADHA Liu Care Team Information [employer] Unavailable Payers Type Date Identification Numbers Payment Provider Subscriber Medicare Primary Effective: Policy Number: Medicare - Bswny Benny Cardoso 2013 [id number] Umd PayID: [id number] [address] [place] [address] Medigap Part B Effective: 2016 Policy Number: [id number] [facility] Care Benny Cardoso PayID: [id number] [address] [place] [address] Problems Description No Information Social History Type Date Description Comments Lives With Female Partner 2 children of his own and partner has a child Diet Healthy, Well Balanced Pets 1 dog Pets 2 cats Pets Snake Pets [employer] Occupation Disabled SSI and disability/retired Cigarette Use Former Cigarette Smoker smoked for three years while in the [place] Use Occasionally consumes alcohol Recreational Drug Use Regularly uses Marijuana helps PTSD and back spasms Daily Caffeine Consumes on average 2 cups of coffee per day Enjoy Exercising Enjoys exercising Allergies, Adverse Reactions, Alerts Date Description Reaction Status Severity Comments 07/19/2016 Penicillin active 07/19/2016 NKDA inactive Medications Medication Date Status Form Strength Qnty SIG Indications Ordering Provider Diclofenac Sodium 09/14 Active Gel 3% 100gm apply 2 gm R07.1 four times a Acosta, day to chest M.D. wall as needed to reduce pain and inflmmation Requip 02/10 Active Tablets 2mg 30tab one by mouth s before bed Harley Green, for leg [employer] cramps Alprazolam 01/24 Active Tablets 0.5mg 30tab 1 tab by F41.9 s mouth twice Harley Green, a day as [employer] needed Ropinirole HCL ER Active Tablets 2mg 14tab 1 by mouth Shawnt ER 24HR s at at Harley Green, bedtime [employer] Mirtazapine Active Tablets 45mg at hs Unknown / Naproxen Sodium Active Tablets 500mg bid prn Unknown Prazosin HCL Active Capsules 14mg at hs Unknown / Hydroxyzine HCL Active Tablets 50mg Unknown Methocarbamol Active Tablets 500mg qid prn Gabapentin Active Capsules 300mg tid Cyclobenzaprine Active Tablets 5mg Unknown Paroxetine HCL Active Tablets 40mg 1 by mouth every day Calcium Carbonate Active Tablets 1000mg 1 by mouth tid prn Lidocaine Active Cream 4% apply tid prn to chest No Active 07/19 Hx Unknown - 07/19 Ketorolac 07/19 Hx Tablets 10mg 30tab 1 by mouth .5 Trometh s q6hr as Harley Green, - needed pain [employer] 07/29 Robaxin-750 07/19 Hx Tablets 750mg 30tab take 1 M54.5 s tablet by Harley Green, - mouth 3 [employer] 01/24 times a day as needed for muscle spasm /tightness Prednisone 07/19 Hx Tablets 20mg 13tab 3 by mouth s every day x Harley Green, - 2days, 2 by [employer] 01/24 mouth every day x 2 days, 1 by mouth every day x 2 days, 1/2 by mouth every day x 2 days Lidoderm 07/19 Hx Patches 5% 30uni apply to M54.5 ts foot before Harley Green, - bed, remove [employer] 01/24 in morning Quetiapine 00 Hx Tablets 400mg 1 tab by Unknown Fumarate 0000 mouth before - bed 09/14 Prazosin HCL Hx Capsules 5mg Unknown /0000 - 09/14 Medications Administered in Office Medication Date Status Form Strength Qnty SIG Indications Ordering Provider Injection Administered Injection Antonio Souza Ketorolac 017 Storm, Tromethamine [employer] Per 15 MG (Toradol) Immunizations CPT Code Status Date Vaccine Lot # [id number] Given 12/29/2014 Tdap (Adacel) [id number] Refused 01/24/2017 Influenza Virus Vaccine, Quadrivalent, 3 Yr > Quad , Preserv Free Vital Signs Date Vital Result Comment 09/14/2017 Weight 198.00 lb Weight in kg's 89.813 BP Systolic 118 mmHg BP Diastolic 72 mmHg Heart Rate 85 /min Body Temperature 98.1 F Respiratory Rate 18 /min O2 % BldC Oximetry 96 % 08/09/2017 Weight 197.00 lb Weight in kg's 89.359 BP Systolic 110 mmHg BP Diastolic 80 mmHg Heart Rate 74 /min Body Temperature 97.8 F Respiratory Rate 16 /min 02/10/2017 Weight 203.00 lb Weight in kg's 92.081 BP Systolic 122 mmHg BP Diastolic 70 mmHg Heart Rate 78 /min Body Temperature 98.3 F Respiratory Rate 15 /min O2 % BldC Oximetry 98 % 01/24/2017 Weight 205.00 lb Weight in kg's 92.988 BP Systolic 120 mmHg BP Diastolic 82 mmHg Heart Rate 90 /min Body Temperature 98.3 F Respiratory Rate 14 /min 07/19/2016 Weight 194.00 lb Weight in kg's 87.998 BP Systolic 120 mmHg BP Diastolic 80 mmHg Heart Rate 80 /min Body Temperature 98.8 F Respiratory Rate 16 /min Height 67 inches 5'7" BMI (Body Mass Index) 30.4 kg/m2 Results Test Date Test Result H/L Range Note CBC Auto Diff 09/09/2017 White Blood Count 4.9 10^3/uL 3.5-10.8 Red Blood Count 4.95 10^6/uL 4.00-5.40 Hemoglobin 15.4 g/dL 14.0-18.0 Hematocrit 45 % 42-52 Mean Corpuscular Volume 90 fL 80-94 Mean Corpuscular Hemoglobin 31 pg 27-31 Mean Corpuscular HGB Conc 35 g/dL 31-36 Red Cell Distribution Width 14 % 10.5-15 Platelet Count 209 10^3/uL 150-450 Mean Platelet Volume 8.7 um3 7.4-10.4 Abs Neutrophils 2.8 10^3/uL 1.5-7.7 Abs Lymphocytes 1.4 10^3/uL 1.0-4.8 Abs Monocytes 0.3 10^3/uL 0-0.8 Abs Eosinophils 0.3 10^3/uL 0-0.6 Abs Basophils 0 10^3/uL 0-0.2 Abs Nucleated RBC 0 10^3/uL Granulocyte % 58.3 % 38-83 Lymphocyte % 29.4 % 25-47 Monocyte % 5.6 % 0-7 Eosinophil % 6.4 % High 0-6 Basophil % 0.3 % 0-2 Nucleated Red Blood Cells % 0.1 Comp Metabolic Panel 09/09/2017 Sodium 139 mmol/L 135-145 Potassium 4.1 mmol/L 3.5-5.0 Chloride 106 mmol/L 101-111 Co2 Carbon Dioxide 28 mmol/L 22-32 Anion Gap 5 mmol/L 2-11 Glucose 97 mg/dL 70-100 Blood Urea Nitrogen 23 mg/dL 6-24 Creatinine 0.87 mg/dL 0.67-1.17 BUN/Creatinine Ratio 26.4 High 8-20 Calcium 9.2 mg/dL 8.6-10.3 Total Protein 6.8 g/dL 6.4-8.9 Albumin 4.3 g/dL 3.2-5.2 Globulin 2.5 g/dL 2-4 Albumin/Globulin Ratio 1.7 1-3 Total Bilirubin 0.40 mg/dL 0.2-1.0 Alkaline Phosphatase 50 U/L 34-104 Alt 23 U/L 7-52 Ast 17 U/L 13-39 Egfr Non- 103.7 >60 Egfr 125.5 >60 1 Laboratory test finding 09/09/2017 Troponin-I (TnI) 0.00 ng/mL <0.04 Lactic Acid 1.1 mmol/L 0.5-2.0 2 Laboratory test finding 08/03/2016 TSH (Thyroid Stimulating 0.39 mcIU/mL 0.34-5.60 Horm) Total T3 0.80 ng/mL Low 0.87-1.78 Free T4 0.68 ng/dL 0.61-1.12 Thyroperoxidase AB 1.88 IU/mL <9 Thyroglobulin Antibody <1.8 IU/mL <4.0 3 1 Because ethnic data is not always readily available, this report includes an eGFR for both -Americans and non- Americans. The National Kidney Disease Education Program (NKDEP) does not endorse the use of the MDRD equation for patients that are not between the ages of 18 and 70, are , have extremes of body size, muscle mass, or nutritional status, or are non- or non-. According to the National Kidney Foundation, irrespective of diagnosis, the stage of the disease is based on the level of kidney function: Stage Description GFR(mL/min/1.73 m(2)) 1 Kidney damage with normal or decreased GFR 90 2 Kidney damage with mild decrease in GFR 60-89 3 Moderate decrease in GFR 30-59 4 Severe decrease in GFR 15-29 5 Kidney failure <15 (or dialysis) 2 [facility] Severe Sepsis and Septic Shock Management Bundle Measure requires all lactic acids initially measuring >2.0 mmol/L be repeated. 3 ADDITIONAL INFORMATION The thyroglobulin antibody testing method is an immunoenzymatic assay manufactured by [employer] and performed on the [employer] DXI 800. Values obtained from different assay methods or kits may be different and cannot be used interchangeably. The results cannot be interpreted as absolute evidence for the presence or absence of malignant disease. Test Performed by: [address] [address] Procedures Date CPT Code Description Status 07/19/2016 96319 Therapeutic,Prophylactic,Or Diagnostic Inj,SC/Im Completed Specify Drug Encounters Type Date Location Provider CPT E/M Dx Office Visit 08/09/2017 3:30p [facility] RADHA Liu [address]144 M54.2 M54.16 Office Visit 02/10/2017 1:30p Main Office RADHA Liu [address]52 K42.9 F41.9 Office Visit 01/24/2017 10:30a [place] [address] F41.9 Office Visit 07/19/2016 2:15p Main Office Antonio Green [facility] [address] M54.5 M54.17 E07.9 Plan of Care 09/14/2017 - Randall Acosta M.D.R07.1 Chest pain on breathingNew Medication: Diclofenac Sodium 3 %Comments:Pain is reproduced with palpation of the left sternocostal junction just above the level of the nipple.Discussed costochondritis or strained intercostal muscle.For now continue other pain medications but will also have him try topical diclofenac.
[2017-10-07 20:24] LABS: Urine Appearance Clear; Urine Blood Negative (Negative); Urine Color Yellow; Urine Ketones Negative (Negative); Urine Protein Negative (Negative); Urine Specific Gravity 1.018 (1.010-1.030); Urine Urobilinogen Negative (Negative)
[2017-10-07 20:35] LABS: EGFR Non-African American 84.8 (>60)
--- NOTE | 2017-10-07 22:51 | PN ---
Progress Note - Progress Note Date of Service: 10/07/17 Note: SIGNOUT FROM DR. HARRISON AT [facility]ING [facility]. This is scribe, SooYoung Ming, documenting for attending Dr. Rudy MD. I, Dr. Grant, personally performed the services described in this documentation as scribed in my presence and it is both accurate and complete. Pt is a 32 y/o M presenting to ED by police for possible SI. At 22:50: Discussed pt with rail car repairman. DX: DISPO:
[2017-10-07 23:35] VITALS: BP 124/80
== END 2017-10-07 23:36 | disposition home or self-care (01) ==
LOC: ED 19:20
DX: F43.0 Acute stress reaction (principal); Z88.0 Allergy status to penicillin; Z82.49 Family history of ischemic heart disease and other diseases of the circulatory system; Z87.891 Personal history of nicotine dependence
CPT/HCPCS: 36415; 80053; 80307; 80320; 80329; 81003; 84443; 85025; 99284; G0480

== ENCOUNTER → 2018-04-09 17:43 | Emergency (ER) | payer MEDICARE, OTHER ==
[2018-04-09 17:53] VITALS: BP 121/78
== END | disposition left against medical advice (07) ==
LOC: ED 17:43
DX: M25.571 Pain in right ankle and joints of right foot (principal); Z53.21 Procedure and treatment not carried out due to patient leaving prior to being seen by health care provider